=== PATIENT | female | born 1975 | race African-American/Black ===

== ENCOUNTER 2020-07-27 14:40 | Emergency (ER) | payer MEDICAID ==
[~2020-07-27] VITALS: Ht 165.1 cm; Wt 60.0 kg
[2020-07-27] MEDS ORDERED: LEVETIRACETAM 1000MG PREMIX 100 ML IV ONE (16:30)
[2020-07-27 16:31] LABS: BASOPHILS % 0.3 % (0.0-2.0); EOSINOPHILS % 0.2 % (0.0-5.0); HEMATOCRIT. 41.1 % (36.0-48.0); HEMOGLOBIN. 14.1 g/dL (12.0-16.0); LYMPHOCYTES % 17.5 % (20.0-50.0); MEAN CORPUSCULAR HEMOGLOBIN 33.7 pg (28.0-32.0); MEAN CORPUSCULAR VOLUME 98.6 fL (81.0-99.0); MONOCYTES % 6.6 % (2.0-8.0); NEUTROPHILS % 75.4 % (40.0-76.0); RED BLOOD CELL COUNT 4.17 mill/uL (4.2-5.4); RED CELL DISTRIBUTION WIDTH 14.4 % (11.6-14.6)
[2020-07-27 16:37] LABS: CLARITY URINE CLEAR (CLEAR); COLOR URINE YELLOW (YELLOW); KETONES URINE 4+ (NEGATIVE); LEUKOCYTE ESTERASE URINE NEGATIVE (NEGATIVE); NITRITE URINE NEGATIVE (NEGATIVE); OCCULT BLOOD URINE 3+ (NEGATIVE); PH URINE 5.5 (4.5-8.0); PROTEIN URINE 1+ (NEGATIVE); SPECIFIC GRAVITY URINE 1.026 (1.005-1.030)
[2020-07-27 16:38] LABS: CHLORIDE 107 mEq/L (98-107)
[2020-07-27 16:42] LABS: ETHANOL BLOOD < 10 mg/dL
[2020-07-27 16:46] LABS: PHENCYCLIDINE URINE SCREEN NEGATIVE (NEGATIVE)
[2020-07-27 16:47] LABS: *AMPHETAMINES SCREEN URINE NEGATIVE (NEGATIVE); *BARBITURATES SCREEN URINE NEGATIVE (NEGATIVE); *BENZODIAZEPINES SCREEN URINE NEGATIVE (NEGATIVE); *COCAINE SCREEN URINE NEGATIVE (NEGATIVE); METHADONE URINE SCREEN NEGATIVE (NEGATIVE); OPIATES URINE SCREEN NEGATIVE (NEGATIVE)
[2020-07-27 16:49] LABS: CANNABINOID URINE SCREEN PRESUMTIVE POSITIVE (NEGATIVE)
[2020-07-27 16:49] LABS: PLATELET 220 x1000/uL (130-400)
[2020-07-27 16:50] LABS: MEAN PLATELET VOLUME 7.8 fl (7.4-10.4)
[2020-07-27] MEDS ORDERED: ALBUTEROL (0.083%) 2.5MG/3ML NEB HHN ONE (17:45)
[2020-07-27] MEDS ORDERED: INSULIN REGULAR (HUMULIN R) 300UNITS/3ML VIAL IV ONE (17:45)
[2020-07-27] MEDS ORDERED: DEXTROSE 50% WATER 50ML SYRINGE IV ONE ×2 (17:45→18:00)
[2020-07-27 18:57] LABS: CHLORIDE 108 mEq/L (98-107)
[2020-07-27] MEDS ORDERED: TOP100 MT (19:09)
[2020-07-27] MEDS ORDERED: LEVE750T4 MT (19:09)
[2020-07-27 19:15] VITALS: BP 113/65
== END 2020-07-27 20:06 | disposition home or self-care (01) ==
LOC: ER 14:40 → EDBD 14:40 → ER 20:06
DX: G40.909 Epilepsy, unspecified, not intractable, without status epilepticus (principal)
CPT/HCPCS: 36415; 70450; 80048; 80053; 80305; 80320; 81003; 82962; 83690; 85025; 96365; 96375; 99284; J1815; J1953; G0480

== ENCOUNTER 2020-08-07 14:05 | Emergency (ER) | payer OTHER, MEDICAID ==
[~2020-08-07] VITALS: Ht 170.2 cm; Wt 81.0 kg
[~2020-08-07 14:05] MED LIST: LEVE750T4 MT; TOP100 MT
[2020-08-07] MEDS ORDERED: LEVETIRACETAM 1000MG PREMIX 100 ML IV ONE (14:30)
[2020-08-07 15:19] LABS: BASOPHILS % 0.8 % (0.0-2.0); CHLORIDE 108 mEq/L (98-107); EOSINOPHILS % 0.5 % (0.0-5.0); HEMOGLOBIN. 12.2 g/dL (12.0-16.0); LYMPHOCYTES % 25.2 % (20.0-50.0); MEAN CORPUSCULAR HEMOGLOBIN 33.1 pg (28.0-32.0); MEAN CORPUSCULAR VOLUME 95.2 fL (81.0-99.0); MEAN PLATELET VOLUME 7.3 fl (7.4-10.4); MONOCYTES % 7.6 % (2.0-8.0); NEUTROPHILS % 65.9 % (40.0-76.0); PLATELET 366 x1000/uL (130-400); RED BLOOD CELL COUNT 3.68 mill/uL (4.2-5.4); RED CELL DISTRIBUTION WIDTH 14.6 % (11.6-14.6)
[2020-08-07 15:23] LABS: ETHANOL BLOOD < 10 mg/dL
[2020-08-07 15:34] LABS: HCG SCREEN NEGATIVE
[2020-08-07] MEDS ORDERED: LEVE750T4 MT (15:56)
[2020-08-07] MEDS ORDERED: TOP100 MT (15:56)
[2020-08-07 16:46] LABS: CLARITY URINE CLOUDY (CLEAR); COLOR URINE YELLOW (YELLOW); KETONES URINE 1+ (NEGATIVE); LEUKOCYTE ESTERASE URINE 1+ (NEGATIVE); NITRITE URINE NEGATIVE (NEGATIVE); OCCULT BLOOD URINE NEGATIVE (NEGATIVE); PROTEIN URINE NEGATIVE (NEGATIVE); SPECIFIC GRAVITY URINE 1.019 (1.005-1.030)
[2020-08-07 16:50] VITALS: BP 123/71
[2020-08-07 16:56] LABS: *AMPHETAMINES SCREEN URINE NEGATIVE (NEGATIVE); *BARBITURATES SCREEN URINE NEGATIVE (NEGATIVE); *BENZODIAZEPINES SCREEN URINE NEGATIVE (NEGATIVE); *COCAINE SCREEN URINE NEGATIVE (NEGATIVE); METHADONE URINE SCREEN NEGATIVE (NEGATIVE); OPIATES URINE SCREEN NEGATIVE (NEGATIVE); PHENCYCLIDINE URINE SCREEN NEGATIVE (NEGATIVE)
[2020-08-07 17:09] LABS: CANNABINOID URINE SCREEN PRESUMTIVE POSITIVE (NEGATIVE)
== END 2020-08-07 16:56 | disposition home or self-care (01) ==
LOC: ER 14:18
DX: G40.419 Other generalized epilepsy and epileptic syndromes, intractable, without status epilepticus (principal); I51.7 Cardiomegaly; Z79.899 Other long term (current) drug therapy
CPT/HCPCS: 36415; 80053; 80305; 80320; 81003; 82962; 84703; 85025; 93005; 96365; 99284; J1953; G0480

== ENCOUNTER 2021-08-02 10:14 | Emergency (ER) | payer OTHER, MEDICAID ==
[~2021-08-02] VITALS: Ht 170.2 cm; Wt 80.0 kg
[2021-08-02 10:23] VITALS: BP 120/70
[2021-08-02] MEDS ORDERED: KETOROLAC 15MG/ML VIAL IV ONE (10:45)
[2021-08-02] MEDS ORDERED: TOPIRAMATE 100MG TABLET PO STA (10:47)
[2021-08-02] MEDS ORDERED: LEVETIRACETAM 500MG PREMIX 100 ML IV ONE (11:00)
[2021-08-02] MEDS ORDERED: LEVETIRACETAM 500MG TABLET PO ONE (11:30)
[2021-08-02] MEDS ORDERED: IBUPROFEN 400MG TABLET PO ONE (11:30)
[2021-08-02] MEDS ORDERED: LEVE1000 MT (13:31)
[2021-08-02] MEDS ORDERED: TOP100 MT (13:31)
== END 2021-08-02 13:59 | disposition home or self-care (01) ==
LOC: ER 10:32
DX: R56.9 Unspecified convulsions (principal); M25.571 Pain in right ankle and joints of right foot; M54.2 Cervicalgia; I10 Essential (primary) hypertension; Z88.8 Allergy status to other drugs, medicaments and biological substances; Z76.0 Encounter for issue of repeat prescription
CPT/HCPCS: 73610; 73630; 82962; 96374; 99284